=== PATIENT | male | born 1980 | race Caucasian/White ===

== ENCOUNTER 2016-08-08 15:54 | Emergency (ER) | payer OTHER ==
[2016-08-08 16:07] VITALS: BP 135/88; PULSE 66; RESP 16; TEMP 98.2; O2SAT 97
[2016-08-08 16:50] LABS: % IMMATURE GRANULYOCYTES 0.3 % (0.0-1.1); ABSOLUTE IMMATURE GRANULOCYTES 0.02 10^3/uL (0.00-0.10); ADD DIFF? NO; ADD MORPH? NO; ADD SCAN? NO; ATYPICAL LYMPHOCYTE FLAG 10 (0-99); FRAGMENT RBC FLAG 0 (0-99); HEMATOCRIT 43.9 % (40.0-51.0); HEMOGLOBIN 16.1 g/dL (13.7-17.5); LEFT SHIFT FLG 0 (0-99); LIPEMIA HEMOLYSIS FLAG 90 (0-99); MEAN CELL HEMOGLOBIN 32.3 pg (27.9-34.1); MEAN CELL HEMOGLOBIN CONCENTR. 36.7 g/dL (32.4-36.7); MEAN CELL VOLUME 88.2 fL (81.5-99.8); MEAN PLATELET VOLUME 12.7 fL (8.7-11.7); PLATELET CLUMPS FLAG 0 (0-99); PLATELET COUNT 187 10^3/uL (150-400); RED BLOOD CELL COUNT 4.98 10^6/uL (4.40-6.38); RED CELL DISTRIBUTION WIDTH 11.9 % (11.5-15.2)
[2016-08-08 16:56] LABS: SEDIMENTATION RATE 5 MM/HR (0-15)
[2016-08-08 17:04] LABS: ANION GAP 15 mEq/L (8-16); CALCIUM 9.7 mg/dL (8.5-10.4); CARBON DIOXIDE 25 mEq/l (22-31); CHLORIDE 102 mEq/L (97-110); CREATININE 0.7 mg/dL (0.7-1.3); GLOMERULAR FILTRATION RATE > 60; GLUCOSE 84 mg/dL (70-100); POTASSIUM 4.2 mEq/L (3.5-5.2); SODIUM 142 mEq/L (134-144); URIC ACID 6.8 mg/dL (3.5-8.5)
--- NOTE | 2016-08-08 17:39 | EDPHY ---
H & P Time Seen by Provider: 08/08/16 16:14 HPI/ROS: 36-year-old male presents complaining of right lateral distal foot pain of 3 and half days duration, he denies injury, no fevers no chills. He denies recent change in his foot wear. No prior history of foot pain no prior history of gout. Review of systems As per HPI General no fever no chills no weakness HEENT no eye pain no eye discharge. No eye redness, no sore throat Respiratory no cough, no shortness of breath Cardiac no chest pain, no peripheral edema GI no abdominal pain, no diarrhea, no constipation, no nausea, no vomiting no flank pain, no hematuria, no dysuria Musculoskeletal no myalgias, positive joint pain Heme no easy bruising, no easy bleeding Endo no polyuria, no polydipsia Skin no rashes, no pruritus Neuro no syncope, no dizziness, no headaches Psych is no suicidal ideation, no homicidal ideation Past Medical/Surgical History: None Social History: Alcohol socially denies drug use Smoking Status: Former smoker Physical Exam: 36-year-old male alert and oriented Alert and oriented in no acute distress nontoxic appearance, afebrile Atraumatic normocephalic Neck no JVD Lungs clear to auscultation, no respiratory distress Heart regular rate and rhythm Extremities no cyanosis clubbing edema Except right foot Distal right lateral foot from distal half of 5th metatarsal extending to small toe tenderness to palpation no erythema no swelling no rash good capillary refill full range of motion of digits Constitutional: Initial Vital Signs Temperature (C) 36.8 C 08/08/16 16:04 Heart Rate 66 08/08/16 16:04 Respiratory Rate 16 08/08/16 16:04 Blood Pressure 135/88 H 08/08/16 16:04 O2 Sat (%) 97 08/08/16 16:04 O2 Delivery Mode Room Air Allergies/Adverse Reactions: No Known Allergies Allergy (Unverified 08/08/16 16:07) Home Medications: Medication Instructions Recorded NK [No Known Home Meds] 08/08/16 Medical Decision Making - Diagnostics Imaging Results: Imaging Impressions Foot X-Ray 08/08/16 16:38 Impression: No evidence of fractures or degenerative arthropathy of the right foot. ED Course/Re-evaluation: Medical decision making and ER course Patient seen and evaluated for right distal lateral foot pain with no prior injury. X-ray Negative CBC within normal limits Sed rate normal BMP normal Uric acid normal Differential diagnosis considered Foot strain, foot contusion, gout, joint infection, cellulitis No evidence of erythema no fevers or chills therefore both joint infection and cellulitis seem highly unlikely Also CBC and sed rate within normal limits Not typical for gout in that there is no swelling and it does not involve the 1st metatarsal Impression Foot sprain Plan Walker boot Follow-up podiatry Patient did not feel the walker boot improved his ability to walk or his pain or ability to rest that part of his foot so chose not to take the walker boot for now - Data Points Laboratory Results: Laboratory Results 08/08/16 16:45 08/08/16 16:45 08/08/16 08/08/16 16:45 16:45 WBC 7.10 10^3/uL 10^3/uL (3.80-9.50) RBC 4.98 10^6/uL 10^6/uL (4.40-6.38) Hgb 16.1 g/dL g/dL (13.7-17.5) Hct 43.9 % % (40.0-51.0) MCV 88.2 fL fL (81.5-99.8) MCH 32.3 pg pg (27.9-34.1) MCHC 36.7 g/dL g/dL (32.4-36.7) RDW 11.9 % % (11.5-15.2) Plt Count 187 10^3/uL 10^3/uL (150-400) MPV 12.7 fL H fL (8.7-11.7) Neut % (Auto) 57.2 % % (39.3-74.2) Lymph % (Auto) 32.5 % % (15.0-45.0) [place] % (Auto) 7.9 % % (4.5-13.0) Eos % (Auto) 1.5 % % (0.6-7.6) Baso % (Auto) 0.6 % % (0.3-1.7) Nucleat RBC Rel Count 0.0 % % (0.0-0.2) Absolute Neuts (auto) 4.06 10^3/uL 10^3/uL (1.70-6.50) Absolute Lymphs (auto) 2.31 10^3/uL 10^3/uL (1.00-3.00) Absolute Monos (auto) 0.56 10^3/uL 10^3/uL (0.30-0.80) Absolute Eos (auto) 0.11 10^3/uL 10^3/uL (0.03-0.40) Absolute Basos (auto) 0.04 10^3/uL 10^3/uL (0.02-0.10) Absolute Nucleated RBC 0.00 10^3/uL 10^3/uL (0-0.01) Immature Gran % 0.3 % % (0.0-1.1) Immature Gran # 0.02 10^3/uL 10^3/uL (0.00-0.10) ESR 5 MM/HR MM/HR (0-15) Sodium 142 mEq/L mEq/L (134-144) Potassium 4.2 mEq/L mEq/L (3.5-5.2) Chloride 102 mEq/L mEq/L (97-110) Carbon Dioxide 25 mEq/l mEq/l (22-31) Anion Gap 15 mEq/L mEq/L (8-16) BUN 13 mg/dL mg/dL (7-23) Creatinine 0.7 mg/dL mg/dL (0.7-1.3) Estimated GFR > 60 Glucose 84 mg/dL mg/dL (70-100) Uric Acid 6.8 mg/dL mg/dL (3.5-8.5) Calcium 9.7 mg/dL mg/dL (8.5-10.4) Departure - Departure Disposition: Home, Routine, Self-Care Clinical Impression: Acute pain of right foot Condition: Good Instructions: Foot Sprain (ED) Referrals: Karen Martinez MD [Primary Care Provider] - As per Instructions Rossy Oconnell [Doctor of Podiatric Medicine] - As per Instructions
== END 2016-08-08 17:46 | disposition home or self-care (01) ==
LOC: CED 15:54
DX: M79.671 Pain in right foot (principal); Z87.891 Personal history of nicotine dependence
CPT/HCPCS: 73630-PO; 80048-PO; 84550-PO; 85025-PO; 85652-PO

== ENCOUNTER → 2017-05-18 | Outpatient (CLI) | payer OTHER | LOC: BMCIMAGING 08:34 | PROVIDERS: ATTEND Orthopaedic Surgery Hand Surgery | DX: Z47.89 Encounter for other orthopedic aftercare (principal); S72.491D Other fracture of lower end of right femur, subsequent encounter for closed fracture with routine healing ==